=== PATIENT | female | born 1950 ===

== ENCOUNTER 2018-08-17 06:42 | Emergency (ER) | payer OTHER ==
[2015-02-05 13:09] VITALS: Wt 87.5 kg
[~2018-08-17 06:42] MED LIST: ALBU2.5V36 INH; ASPI-715 PO; ASPI-757 PO; AUG875 PO; BACDS PO; CEL100 PO; CEP500 PO; ENO40I SQ; FAM20 PO; IBU200 PO; IBU600 PO; IBUP-1618 PO; IRO150 PO; LOR5 PO; LOR5/325 PO; MULT-1 PO; MV-M1CAP15 PO; NAPR220C12 PO; OXYC-865 PO; OXYGEN INH; PER PO; PRED20TA6 PO; ROBC PO; VITAMINS; WARF-12 PO; [UNRECOGNIZED DRUG - CODE] PO
--- NOTE | 2018-08-17 07:37 | ER Report ---
History and Physical Time Seen By MD: 07:33 Hx. of Stated Complaint: pt reports headache and dizziness/lightheadedness this morning, feeling hot, shjort instance of chest pain, also intermittent rectal bleeding HPI/ROS 67-year-old female was working this morning in her snf job when she experienced 2 episodes of feeling lightheaded and dizzy. No syncope. One fleeting second of a sharp pain to her left chest. No SOB. [place] well before going to work. No syncope. No falls. 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 Active Scripts Prednisone (PREDNISONE) 20 Mg Tablet, 60 MG PO QDAY, #15 TAB 0 Refills Prov:DANIEL VAUGHN MD 01/05/17 Albuterol Sulfate 0.083% (ALBUTEROL SULFATE 0.083%) 2.5 Mg/3 Ml Vial.neb, 2.5 MG INH Q4H PRN for WHEEZING, #1 BOX 0 Refills Prov:DANIEL VAUGHN MD 01/05/17 Guaifenesin/Codeine (GUAIFENESIN-CODEINE SYRUP) 5 Ml Syrp, 5 ML PO Q6H PRN for COUGH, #120 ML 0 Refills Prov:DANIEL VAUGHN MD 01/05/17 Reported Medications Mv-Mn/FA/Vit K/Lycop/Lut/Coq10 (Daily Multivitamin Capsule) 1 Each Capsule, 1 TAB PO QAM 02/04/15 Oxygen (Oxygen) 2 L Inha, 2 L INH QHS, 0 Refills 10/18/11 Hx Smoking: Yes Smoking Status: Former Smoker Exposure to Second Hand Smoke?: No Hx Substance Use Disorder: No Hx Alcohol Use: No Constitutional Vital Sign - Last 24 Hours 08/17/18 08/17/18 08/17/18 08/17/18 06:54 06:57 07:02 07:07 Temp 99.0 Pulse 99 86 89 ??? Resp 18 B/P (MAP) 139/76 Pulse Ox 83 89 89 94 O2 Delivery Room Air 08/17/18 08/17/18 08/17/18 08/17/18 07:12 07:17 07:21 07:22 Pulse 85 86 85 B/P (MAP) 135/74 (94) Pulse Ox 89 89 91 08/17/18 08/17/18 08/17/18 08/17/18 07:27 07:32 07:37 07:42 Pulse 93 85 83 85 Resp 18 12 Pulse Ox 88 88 89 92 08/17/18 08/17/18 08/17/18 08/17/18 07:47 07:52 07:57 08:00 Pulse 83 83 87 Resp 10 19 16 B/P (MAP) 129/67 (87) Pulse Ox 92 89 89 08/17/18 08/17/18 08/17/18 08/17/18 08:02 08:07 08:12 08:17 Pulse 85 ? Resp 13 Pulse Ox 90 08/17/18 08/17/18 08/17/18 08/17/18 08:22 08:27 08:30 08:32 Pulse ??? 82 ??? B/P (MAP) 122/73 (89) Pulse Ox 92 92 08/17/18 08/17/18 08/17/18 08/17/18 08:37 08:42 08:57 09:00 Pulse 79 78 76 Resp 20 20 15 B/P (MAP) 119/69 (86) Pulse Ox 92 90 92 08/17/18 08/17/18 08/17/18 08/17/18 09:12 09:13 09:27 09:30 Pulse 74 73 Resp 9 17 B/P (MAP) 118/56 (76) Pulse Ox 90 90 O2 Flow Rate 2.0 08/17/18 08/17/18 08/17/18 08/17/18 09:42 09:57 10:00 10:12 Pulse 71 82 ??? Resp 11 21 16 B/P (MAP) 118/58 (78) Pulse Ox 91 91 91 Physical Exam General Appearance: The patient is alert, has no immediate need for airway protection and no current signs of toxicity. Eyes: Pupils equal and round no injection. Respiratory: Chest is non tender, lungs are clear to auscultation. Cardiac: regular rate and rhythm Gastrointestinal: Abdomen is soft and non tender, no masses, bowel sounds normal. Neck: Neck is supple and non tender. Extremities have full range of motion and are non tender. Skin: No rashes or lesions. DIFFERENTIAL DIAGNOSIS: After history and physical exam differential diagnosis was considered for infection, PE, WI, CVA Medical Decision Making Data Points Result Diagram: 08/17/18 0715 08/17/18 0715 Laboratory Hematology Test 08/17/18 07:15 08/17/18 10:20 Red Blood Count 5.35 M/uL (4.17-5.56) Mean Corpuscular Volume 90.0 fL (80.0-96.0) Mean Corpuscular Hemoglobin 30.5 pg (26.0-33.0) Mean Corpuscular Hemoglobin Concent 33.9 g/dL (32.0-36.0) Red Cell Distribution Width 13.8 % (11.5-14.5) Mean Platelet Volume 9.3 fL (7.2-11.1) Neutrophils (%) (Auto) 84.9 % (39.4-72.5) Lymphocytes (%) (Auto) 7.1 % (17.6-49.6) Monocytes (%) (Auto) 7.0 % (4.1-12.4) Eosinophils (%) (Auto) 0.3 % (0.4-6.7) Basophils (%) (Auto) 0.7 % (0.3-1.4) Nucleated RBC Relative Count (auto) 0.0 /100WBC Neutrophils # (Auto) 13.6 K/uL (2.0-7.4) Lymphocytes # (Auto) 1.1 K/uL (1.3-3.6) Monocytes # (Auto) 1.1 K/uL (0.3-1.0) Eosinophils # (Auto) 0.0 K/uL (0.0-0.5) Basophils # (Auto) 0.1 K/uL (0.0-0.1) Nucleated RBC Absolute Count (auto) 0.00 K/uL Peripheral Blood Smear No Y/N Sodium Level 143 mmol/L (137-145) Potassium Level 3.5 mmol/L (3.5-5.0) Chloride Level 105 mmol/L (98-107) Carbon Dioxide Level 29 mmol/L (22-31) Blood Urea Nitrogen 15 mg/dl (7-18) Creatinine 0.60 mg/dl (0.52-1.04) Glomerular Filtration Rate Calc > 60.0 Random Glucose 122 mg/dl (75-110) Calcium Level 9.1 mg/dl (8.4-10.2) Total Bilirubin 0.5 mg/dl (0.2-1.3) Aspartate Amino Transf (AST/SGOT) 29 U/L (0-35) Alanine Aminotransferase (ALT/SGPT) 27 U/L (0-56) Alkaline Phosphatase 74 U/L (0-126) Troponin I < 0.012 ng/ml Total Protein 7.2 g/dl (6.3-8.2) Albumin 3.9 g/dl (3.5-5.0) Urine Color Yellow Urine Clarity Clear Urine pH 6.0 pH (4.8-9.5) Urine Specific Mcguffey 1.014 Urine Protein Negative mg/dL (NEGATIVE) Urine Glucose (UA) Negative mg/dL (NEGATIVE) Urine Ketones Trace mg/dL (NEGATIVE) Urine Blood Negative (NEGATIVE) Urine Nitrite Negative (NEGATIVE) Urine Bilirubin Negative (NEGATIVE) Urine Urobilinogen Negative mg/dL (0.2-1.9) Urine Leukocyte Esterase Trace (NEGATIVE) Urine RBC <1 /HPF (0-2/HPF) Urine WBC 2 /HPF (0-5/HPF) Urine Squamous Epithelial Cells None /LPF (</=FEW) Urine Bacteria Negative /HPF (NONE-FEW) Urine Mucus Few /HPF (NONE-FEW) Chemistry Test 08/17/18 07:15 08/17/18 10:20 White Blood Count 16.1 k/uL (4.5-11.0) Red Blood Count 5.35 M/uL (4.17-5.56) Hemoglobin 16.3 g/dL (12.0-16.0) Hematocrit 48.1 % (34.0-47.0) Mean Corpuscular Volume 90.0 fL (80.0-96.0) Mean Corpuscular Hemoglobin 30.5 pg (26.0-33.0) Mean Corpuscular Hemoglobin Concent 33.9 g/dL (32.0-36.0) Red Cell Distribution Width 13.8 % (11.5-14.5) Platelet Count 220 K/uL (150-450) Mean Platelet Volume 9.3 fL (7.2-11.1) Neutrophils (%) (Auto) 84.9 % (39.4-72.5) Lymphocytes (%) (Auto) 7.1 % (17.6-49.6) Monocytes (%) (Auto) 7.0 % (4.1-12.4) Eosinophils (%) (Auto) 0.3 % (0.4-6.7) Basophils (%) (Auto) 0.7 % (0.3-1.4) Nucleated RBC Relative Count (auto) 0.0 /100WBC Neutrophils # (Auto) 13.6 K/uL (2.0-7.4) Lymphocytes # (Auto) 1.1 K/uL (1.3-3.6) Monocytes # (Auto) 1.1 K/uL (0.3-1.0) Eosinophils # (Auto) 0.0 K/uL (0.0-0.5) Basophils # (Auto) 0.1 K/uL (0.0-0.1) Nucleated RBC Absolute Count (auto) 0.00 K/uL Peripheral Blood Smear No Y/N Glomerular Filtration Rate Calc > 60.0 Calcium Level 9.1 mg/dl (8.4-10.2) Total Bilirubin 0.5 mg/dl (0.2-1.3) Aspartate Amino Transf (AST/SGOT) 29 U/L (0-35) Alanine Aminotransferase (ALT/SGPT) 27 U/L (0-56) Alkaline Phosphatase 74 U/L (0-126) Troponin I < 0.012 ng/ml Total Protein 7.2 g/dl (6.3-8.2) Albumin 3.9 g/dl (3.5-5.0) Urine Color Yellow Urine Clarity Clear Urine pH 6.0 pH (4.8-9.5) Urine Specific Mcguffey 1.014 Urine Protein Negative mg/dL (NEGATIVE) Urine Glucose (UA) Negative mg/dL (NEGATIVE) Urine Ketones Trace mg/dL (NEGATIVE) Urine Blood Negative (NEGATIVE) Urine Nitrite Negative (NEGATIVE) Urine Bilirubin Negative (NEGATIVE) Urine Urobilinogen Negative mg/dL (0.2-1.9) Urine Leukocyte Esterase Trace (NEGATIVE) Urine RBC <1 /HPF (0-2/HPF) Urine WBC 2 /HPF (0-5/HPF) Urine Squamous Epithelial Cells None /LPF (</=FEW) Urine Bacteria Negative /HPF (NONE-FEW) Urine Mucus Few /HPF (NONE-FEW) Urinalysis Test 08/17/18 10:20 Urine Color Yellow Urine Clarity Clear Urine pH 6.0 pH (4.8-9.5) Urine Specific Mcguffey 1.014 Urine Protein Negative mg/dL (NEGATIVE) Urine Glucose (UA) Negative mg/dL (NEGATIVE) Urine Ketones Trace mg/dL (NEGATIVE) Urine Blood Negative (NEGATIVE) Urine Nitrite Negative (NEGATIVE) Urine Bilirubin Negative (NEGATIVE) Urine Urobilinogen Negative mg/dL (0.2-1.9) Urine Leukocyte Esterase Trace (NEGATIVE) Urine RBC <1 /HPF (0-2/HPF) Urine WBC 2 /HPF (0-5/HPF) Urine Squamous Epithelial Cells None /LPF (</=FEW) Urine Bacteria Negative /HPF (NONE-FEW) Urine Mucus Few /HPF (NONE-FEW) ED Course/Re-evaluation ED Course Very pleasant 67-year-old female who had 2 episodes of feeling lightheaded and 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 No fever chills. No shortness of breath, no nausea vomiting or diarrhea. I am not sure of the source of her lightheadedness, but she spontaneous improved. Not c/w PE or ACS. Will take the remainder of the day off, and return to work tomorrow. Will follow up with her PCM Decision to Disposition Date: Aug 17, 2018 Decision to Disposition Time: 12:00 Depart Departure Latest Vital Signs Vital Signs Date Time Temp Pulse Resp B/P (MAP) Pulse Ox O2 Delivery O2 Flow Rate FiO2 08/17/18 10:12 ??? 16 91 08/17/18 10:00 118/58 (78) 08/17/18 09:13 2.0 08/17/18 06:54 99.0 Room Air Impression: Primary Impression: Dizziness Condition: Improved Disposition: HOME OR SELF-CARE Referrals: HALLEY KAUR DO (PCP) Patient Instructions: Dizziness (ED) ZEUS LOVE MD Aug 17, 2018 07:37
[2018-08-17] MEDS ORDERED: METOCLOPRAMIDE 10 MG/2 ML SDV IVP ONE (07:40)
[2018-08-17] MEDS ORDERED: NS(*) 0.9% 1000 ML BAG 1,000 ML IV ONE (07:40)
--- NOTE | 2018-08-17 07:42 | EKG ---
[facility] PATIENT NAME: CAROLINE ALFONSO : [id number] MR: [id number] V: [id number] EXAM DATE: ORDERING PHYSICIAN: ZEUS LOVE TECHNOLOGIST: Test Reason : Blood Pressure : / mmHG Vent. Rate : 082 BPM Atrial Rate : 082 BPM P-R Int : 140 ms QRS Dur : 088 ms QT Int : 340 ms P-R-T Axes : 051 000 048 degrees QTc Int : 397 ms Sinus rhythm U waves are present Borderline left axis Artifact in several leads - repeat if needed Abnormal ECG Confirmed by LEW BELL ([id number]) on 08/17/2018 3:12:07 PM Referred By: Confirmed By:LEW BELL
[2018-08-17 07:47] LABS: PLATELET COUNT, AUTOMATED 220 K/uL (150-450)
--- NOTE | 2018-08-17 08:42 | RADIOLOGY IMAGING REPORT ---
FAC[place] [facility] [place]IENT NAME: Nubia Loya : 1950 MR: [id number] V: [id number] EXAM DATE: ORDERING PHYSICIAN: ZEUS LOVE TECHNOLOGIST: Location: [facility] Patient: Nubia Loya : 1950 Visit/Account:[id number] Date of Sevice: 08/17/2018 CHEST PA AND LAT INDICATION: Chest pain, dizziness COMPARISON: January 05, 2017 FINDINGS: The cardiac silhouette is normal in size. Moderate sized hiatal hernia is unchanged. No p neumothorax. Minimal bilateral mid to lower lung central groundglass opacification is new. Convexity right thoracolumbar scoliosis and cholecystectomy clips as before. No acute osseous abnormality. No p leural fluid. IMPRESSION: Suggestion of minimal pulmonary edema. Report Dictated By: Basim Bach MD at 08/17/2018 8:37 AM Report E-Signed By: Basim Bach MD at 08/17/2018 8:38 AM WSN:[id number]
--- NOTE | 2018-08-17 09:07 | RADIOLOGY IMAGING REPORT ---
FACILITY: [facility] PATIENT NAME: Nubia Loya : 1950 MR: [id number] V: [id number] EXAM DATE: ORDERING PHYSICIAN: ZEUS LOVE TECHNOLOGIST: Location: [facility] [place] Patient: Nubia Loya : 1950 Visit/Account:[id number] Date of Sevice: 08/17/[address] scan without contrast COMPARISONS: Report from previous CT dated December 05, 2015 ADDITIONAL PERTINENT HISTORY: Fall several weeks ago with ongoing headaches TECHNIQUE: Multiple axial images were obtained from the skull base to the vertex without IV contrast . One of the following dose optimization techniques was utilized in the performance of this exam: Aut omated exposure control; adjustment of the mA and/or kV according to the patient's size; or use of an iterative reconstruction technique. Specific details can be referenced in the facility's radiology CT exam operational policy. FINDINGS: Midline shift: Negative Ventricles: Negative Brain parenchyma: Negative Extra-axial spaces: Negative Intracranial vasculature: Negative Osseous structures: Negative Paranasal sinuses and mastoid air cells: Negative Surrounding soft tissues and orbits: Negative IMPRESSION: Normal head CT scan without contrast. Report Dictated By: Alfonso Brunson MD at 08/17/2018 8:35 AM Report E-Signed By: Alfonso Brunson MD at 08/17/2018 9:03 AM WSN:[email or web address]
[2018-08-17 12:00] VITALS: BP 122/61
[2018-08-20] MEDS ORDERED: MECL25TA27 PO (15:28)
== END 2018-08-17 12:09 | disposition home or self-care (01) ==
LOC: ER 07:49
DX: R42 Dizziness and giddiness (principal); R94.31 Abnormal electrocardiogram [ECG] [EKG]
CPT/HCPCS: 70450; 71046; 81001; 84484; 85025; 93005; 96361; 96374; 99285; J2765; J7030; 82040; 82247; 82310; 82374; 82435; 82565; 82947; 84075; 84132; 84155; 84295; 84450; 84460; 84520

== ENCOUNTER → 2018-08-23 | Outpatient (CLI) | payer OTHER ==
[2015-02-05 13:09] VITALS: BMI 36.6
[~2018-08-23] MED LIST changes: +LEVO50TA86 PO; +MECL25TA27 PO
[2018-08-23 08:15] LABS: PLATELET COUNT, AUTOMATED 255 K/uL (150-450)
[2018-08-23 08:25] LABS: LDL CHOLESTEROL 71 mg/dl
== END ==
LOC: RESP 02:08
PROVIDERS: ATTEND Internal Medicine
DX: J44.9 Chronic obstructive pulmonary disease, unspecified (principal); R42 Dizziness and giddiness; R07.9 Chest pain, unspecified; R06.00 Dyspnea, unspecified; E66.9 Obesity, unspecified; J98.4 Other disorders of lung
CPT/HCPCS: 36415; 81001; 82040; 82247; 82310; 82374; 82435; 82465; 82565; 82947; 83036; 83718; 83880; 84075; 84132; 84155; 84295; 84443; 84450; 84460; 84478; 84520; 85025; 94060; 94726; 94729

== ENCOUNTER → 2018-08-30 | Outpatient (CLI) | payer OTHER ==
[2015-02-05 13:09] VITALS: BMI 36.6
[~2018-08-30] MED LIST changes: +GADOBENATE 529MG/1ML 15ML VIAL IVP ONE
--- NOTE | 2018-08-30 14:00 | RADIOLOGY IMAGING REPORT ---
FACILITY: [facility] - [place] PATIENT NAME: Nubia Loya : 1950 MR: [id number] V: [id number] EXAM DATE: ORDERING PHYSICIAN: ART CASTILLO TECHNOLOGIST: Location: [facility] [place] Patient: Nubia Loya : 1950 Visit/Account:[id number] Date of Sevice: 08/30/2018 EXAMINATION: MRI brain without IV contrast MRI brain with IV contrast HISTORY: Dizziness, headache. COMPARISON: Brain MRI from 09/09/[address] head from 08/17/2018. TECHNIQUE: Multi-planar, multi-sequence brain MRI was performed before and after IV gadolinium. CONTRAST: 15 mL of IV MultiHance gadolinium. FINDINGS: Brain volume: Normal. Sagittal midline structures: Normal. Ventricles: Normal. Acute ischemic changes: No diffusion restriction present to suggest acute ischemia. Hemorrhage: No acute hemorrhage or hemosiderin staining. Masses/edema: None. Enhancement: No abnormal intracranial enhancement. Cook-white: Negative. White matter: Patchy T2/FLAIR hyperintensities in the deep white matter bilaterally are slightly wor se. Vessels: Normal. Extra-axial: None. Calvarium/scalp: Negative. Skull base: Negative. Visualized sinuses/orbits: Mild mucosal thickening in the bilateral ethmoid air cells. Mild nasal s eptal deviation to the right. Visualized upper neck: Negative. IMPRESSION: 1. No acute infarct, hemorrhage or intracranial mass lesion. 2. Moderate nonspecific white matter disease is slightly worse. This could be due to chronic small vessel ischemia, and/or sequela of chronic migraine headaches, previous inflammation or trauma. Report Dictated By: Jessica Franklin MD at 08/30/2018 1:52 PM Report E-Signed By: Jessica Franklin MD at 08/30/2018 1:56 PM WSN:[id number]
== END ==
LOC: MRI 11:23
PROVIDERS: ATTEND Internal Medicine
DX: J34.2 Deviated nasal septum (principal); R90.82 White matter disease, unspecified; J32.2 Chronic ethmoidal sinusitis
CPT/HCPCS: 70553; A9577

== ENCOUNTER → 2018-10-09 | Outpatient (CLI) | payer OTHER ==
[2015-02-05 13:09] VITALS: BMI 36.6
[~2018-10-09] MED LIST changes: -GADOBENATE 529MG/1ML 15ML VIAL IVP ONE; +MAGN250T5 PO
[2018-10-09 10:56] LABS: PLATELET COUNT, AUTOMATED 226 K/uL (150-450)
== END ==
LOC: LAB 10:00
PROVIDERS: ATTEND Internal Medicine
DX: E03.9 Hypothyroidism, unspecified (principal); R42 Dizziness and giddiness
CPT/HCPCS: 36415; 82040; 82247; 82310; 82374; 82435; 82565; 82947; 84075; 84132; 84155; 84295; 84439; 84443; 84450; 84460; 84520; 85025

== ENCOUNTER → 2018-10-16 | Outpatient (CLI) | payer OTHER ==
[2015-02-05 13:09] VITALS: BMI 36.6
== END ==
LOC: AUD 10-12 10:14
PROVIDERS: ATTEND Internal Medicine
DX: R42 Dizziness and giddiness (principal)
CPT/HCPCS: 92557; 92570

== ENCOUNTER → 2018-10-20 | Outpatient (CLI) | payer OTHER ==
[2015-02-05 13:09] VITALS: BMI 36.6
== END ==
LOC: RESP 19:51
PROVIDERS: ATTEND Internal Medicine
DX: G47.33 Obstructive sleep apnea (adult) (pediatric) (principal); G47.36 Sleep related hypoventilation in conditions classified elsewhere; G47.61 Periodic limb movement disorder

== ENCOUNTER → 2018-11-16 | Outpatient (CLI) | payer OTHER ==
[2015-02-05 13:09] VITALS: BMI 36.6
[~2018-11-16] MED LIST changes: +HYDR10FO7 RC; +MELO-207 PO; +SULF-198 PO
--- NOTE | 2018-11-16 10:17 | RADIOLOGY IMAGING REPORT ---
FAC[place] [facility] [place]IENT NAME: Nubia Loya : 1950 MR: [id number] V: [id number] EXAM DATE: ORDERING PHYSICIAN: ART CASTILLO TECHNOLOGIST: Location: [facility] Patient: Nubia Loya : 1950 Visit/Account:[id number] Date of Sevice: 11/16/2018 Exam type: SHOULDER MIN 2 VIEWS RIGHT History: Right shoulder pain Comparison: None. Findings: There is no evidence of acute fracture dislocation involving the right shoulder. No evidence of lyti c or blastic bone lesions There is very mild narrowing the right glenohumeral joint and mild degenera tive changes of the right AC joint IMPRESSION: 1. Mild generative changes of the right shoulder and right AC joint Report Dictated By: Jordyn Antoine MD at 11/16/2018 10:11 AM Report E-Signed By: Jordyn Antoine MD at 11/16/2018 10:12 AM WSN:[id number]
== END ==
LOC: LAB 08:40
PROVIDERS: ATTEND Internal Medicine
DX: M25.511 Pain in right shoulder (principal)

== ENCOUNTER 2018-11-18 18:41 | Emergency (ER) | payer OTHER ==
[2015-02-05 13:09] VITALS: Wt 87.5 kg
[~2018-11-18 18:41] MED LIST changes: -HYDR10FO7 RC; -SULF-198 PO
--- NOTE | 2018-11-18 18:51 | ER Report ---
History and Physical Time Seen By MD: 18:51 Hx. of Stated Complaint: PT REPORTS RIGHT SIDED ARM PAIN. PT ALSO REPORTS MEDIUM RED BLOOD IN STOOL. HPI/ROS CHIEF COMPLAINT: Right shoulder and neck pain HISTORY OF PRESENT ILLNESS: This is a 68-year-old female who presents to the emergency department for right shoulder and neck pain. Patient states that she saw her primary care provider here recently and was diagnosed with severe arthritis in the right shoulder, patient states that today she feels the right shoulder up into the right neck and into the scalp are painful and warm. She also states that she had some blood on the toilet paper, she has mild abdominal discomfort. Her son who is at the bedside also noted that about 30 minutes prior to arrival she had a very pale appearance, the right side of her face was d rooping, she seemed somewhat confused, he stated bring her in however while in transport the patient had complete resolution of her facial drooping and paleness. Patient is alert and oriented, GCS 15, interacting well answering my questions appropriately. No obvious deficits. Denies chest pain or shortness of breath at this time. No dysuria. No rashes. No recent illnesses. REVIEW OF SYSTEMS: Constitutional: No fever, no chills. Eyes: No discharge. ENT: No sore throat. Cardiovascular: No chest pain, no palpitations. Respiratory: No cough, no shortness of breath. Gastrointestinal: As above. Genitourinary: No hematuria. Musculoskeletal: As above. Skin: No rashes. Neurological: As above. Allergies: Coded Allergies: morphine (Unverified Adverse Reaction, Intermediate, nausea, vomiting, sweating, 11/18/18) per pt after morphine envelope maker Home Meds Active Scripts Sulfamethoxazole/Trimet 800-160 Mg Tab (BACTRIM DS TABLET) 1 Each Tablet, 1 TAB PO Q12H for 3 Days, #5 TAB 0 Refills Prov:MILLICENT HILL REFINERY PIPELINE OPERATOR-BC 11/18/18 Meloxicam (MELOXICAM) 15 Mg Tablet, 15 MG PO QDAY PRN for pain, #30 TAB 1 Refill Prov:ART CORREIA MD 11/16/18 Magnesium Oxide (MAGNESIUM OXIDE) 250 Mg Tablet, 250 MG PO QHS PRN for cramps, #30 TAB Prov:ART CORREIA MD 10/08/18 Levothyroxine Sodium (LEVOTHYROXINE SODIUM) 50 Mcg Tablet, 50 MCG PO QDAY, #30 TAB 3 Refills Prov:ART CORREIA MD 08/23/18 Meclizine Hcl (MECLIZINE HCL) 25 Mg Tab.chew, 25 MG PO TID PRN for dizziness, #30 TAB.CHEW Prov:ART CORREIA MD 08/20/18 Reported Medications Oxygen (Oxygen) 2 L Inha, 2 L INH QHS, 0 Refills 10/18/11 Past Medical/Surgical History The patient has a past medical and surgical history of CVA, migraines, hypertension, uses oxygen at night, 4 year plus smoking, COPD, rectal bleeding, gallbladder disease, kidney stones, arthritis, spinal toe fracture, wears glasses, right total knee, partial hysterectomy, cystoscopy with stent placement, bony growth and throat removed in 2011. Appendectomy, cholecystectomy. Reviewed Nurses Notes: Yes Hx Smoking: Yes Smoking Status: Former Smoker Exposure to Second Hand Smoke?: No Hx Substance Use Disorder: No Hx Alcohol Use: No Constitutional Vital Sign - Last 24 Hours 11/18/18 11/18/18 11/18/18 11/18/18 18:47 18:48 18:56 19:00 Temp 98.2 Pulse 66 63 Resp 14 18 B/P (MAP) 152/87 (108) 152/87 159/71 (100) Pulse Ox 92 90 O2 Delivery Nasal Cannula 11/18/18 11/18/18 11/18/18 11/18/18 19:11 19:30 19:41 19:48 Pulse 60 59 Resp 15 16 B/P (MAP) 118/76 (90) Pulse Ox 90 93 O2 Flow Rate 2.0 Physical Exam General Appearance: The patient is alert, has no immediate need for airway protection and no signs of toxicity. Eyes: Pupils equal and round no pallor or injection. EOMs intact. No nystagmus. ENT, Mouth: Mucous membranes are moist. Respiratory: There are no retractions, lungs are clear to auscultation. Cardiovascular: Regular rate and rhythm, very faint and distant systolic murmur, no clicks or rubs. Gastrointestinal: Abdomen is soft and non tender, no masses, bowel sounds normal. Neurological: Alert and oriented 4. Moving all extremities. Following all commands. No focal neuro deficits. Ambulates with steady gait. Rapid and sequential movements of the upper extremities intact. No facial numbness or droop identified. Uvula midline, no deviation of the tongue. No pronator drift. Finger to nose intact bilaterally. Lower extremity sensation intact bilaterally. Able to hold each lower extremity off the gurney for 5 seconds independently. Dorsal plantar flexion-extension intact bilaterally. Skin: Warm and dry, no rashes. Musculoskeletal: Neck is supple non tender. Extremities are nontender, nonswollen and have full range of motion. DIFFERENTIAL DIAGNOSIS: After history and physical exam differential diagnosis was considered for CVA, TIA, Olivo's palsy, exacerbation of arthritis, shingles, urinary tract infection, gastroenteritis, upper or lower GI bleed. Medical Decision Making Data Points Result Diagram: 11/18/18184911/18/181849 Laboratory Hematology Test 11/18/18 18:50 11/18/18 20:02 Red Blood Count 5.26 M/uL (4.17-5.56) Mean Corpuscular Volume 88.6 fL (80.0-96.0) Mean Corpuscular Hemoglobin 30.5 pg (26.0-33.0) Mean Corpuscular Hemoglobin Concent 34.4 g/dL (32.0-36.0) Red Cell Distribution Width 14.2 % (11.5-14.5) Mean Platelet Volume 8.9 fL (7.2-11.1) Neutrophils (%) (Auto) 53.2 % (39.4-72.5) Lymphocytes (%) (Auto) 33.5 % (17.6-49.6) Monocytes (%) (Auto) 9.5 % (4.1-12.4) Eosinophils (%) (Auto) 2.5 % (0.4-6.7) Basophils (%) (Auto) 1.3 % (0.3-1.4) Nucleated RBC Relative Count (auto) 0.1 /100WBC Neutrophils # (Auto) 5.4 K/uL (2.0-7.4) Lymphocytes # (Auto) 3.4 K/uL (1.3-3.6) Monocytes # (Auto) 1.0 K/uL (0.3-1.0) Eosinophils # (Auto) 0.3 K/uL (0.0-0.5) Basophils # (Auto) 0.1 K/uL (0.0-0.1) Nucleated RBC Absolute Count (auto) 0.01 K/uL Prothrombin Time 12.9 seconds (12.0-14.4) Prothromb Time International Ratio 0.98 Activated Partial Thromboplast Time 27 seconds (23-35) Sodium Level 142 mmol/L (137-145) Potassium Level 3.9 mmol/L (3.5-5.0) Chloride Level 106 mmol/L (98-107) Carbon Dioxide Level 27 mmol/L (22-31) Blood Urea Nitrogen 15 mg/dl (7-18) Creatinine 0.70 mg/dl (0.52-1.04) Glomerular Filtration Rate Calc > 60.0 Random Glucose 100 mg/dl (75-110) Calcium Level 9.5 mg/dl (8.4-10.2) Total Bilirubin 0.6 mg/dl (0.2-1.3) Aspartate Amino Transf (AST/SGOT) 24 U/L (0-35) Alanine Aminotransferase (ALT/SGPT) 16 U/L (0-56) Alkaline Phosphatase 81 U/L (0-126) Troponin I < 0.012 ng/ml Total Protein 7.9 g/dl (6.3-8.2) Albumin 4.2 g/dl (3.5-5.0) Urine Color Yellow Urine Clarity Cloudy Urine pH 5.0 pH (4.8-9.5) Urine Specific [place] 1.024 Urine Protein 30 mg/dL (NEGATIVE) Urine Glucose (UA) Negative mg/dL (NEGATIVE) Urine Ketones Trace mg/dL (NEGATIVE) Urine Blood Moderate (NEGATIVE) Urine Nitrite Negative (NEGATIVE) Urine Bilirubin Negative (NEGATIVE) Urine Urobilinogen 2.0 mg/dL (0.2-1.9) Urine Leukocyte Esterase Large (NEGATIVE) Urine RBC 29 /HPF (0-2/HPF) Urine WBC 345 /HPF (0-5/HPF) Urine Squamous Epithelial Cells Many /LPF (</=FEW) Urine Bacteria Few /HPF (NONE-FEW) Urine Hyaline Casts Few /LPF (NONE-FEW) Urine Mucus Few /HPF (NONE-FEW) Chemistry Test 11/18/18 18:50 11/18/18 20:02 White Blood Count 10.1 k/uL (4.5-11.0) Red Blood Count 5.26 M/uL (4.17-5.56) Hemoglobin 16.0 g/dL (12.0-16.0) Hematocrit 46.6 % (34.0-47.0) Mean Corpuscular Volume 88.6 fL (80.0-96.0) Mean Corpuscular Hemoglobin 30.5 pg (26.0-33.0) Mean Corpuscular Hemoglobin Concent 34.4 g/dL (32.0-36.0) Red Cell Distribution Width 14.2 % (11.5-14.5) Platelet Count 266 K/uL (150-450) Mean Platelet Volume 8.9 fL (7.2-11.1) Neutrophils (%) (Auto) 53.2 % (39.4-72.5) Lymphocytes (%) (Auto) 33.5 % (17.6-49.6) Monocytes (%) (Auto) 9.5 % (4.1-12.4) Eosinophils (%) (Auto) 2.5 % (0.4-6.7) Basophils (%) (Auto) 1.3 % (0.3-1.4) Nucleated RBC Relative Count (auto) 0.1 /100WBC Neutrophils # (Auto) 5.4 K/uL (2.0-7.4) Lymphocytes # (Auto) 3.4 K/uL (1.3-3.6) Monocytes # (Auto) 1.0 K/uL (0.3-1.0) Eosinophils # (Auto) 0.3 K/uL (0.0-0.5) Basophils # (Auto) 0.1 K/uL (0.0-0.1) Nucleated RBC Absolute Count (auto) 0.01 K/uL Prothrombin Time 12.9 seconds (12.0-14.4) Prothromb Time International Ratio 0.98 Activated Partial Thromboplast Time 27 seconds (23-35) Glomerular Filtration Rate Calc > 60.0 Calcium Level 9.5 mg/dl (8.4-10.2) Total Bilirubin 0.6 mg/dl (0.2-1.3) Aspartate Amino Transf (AST/SGOT) 24 U/L (0-35) Alanine Aminotransferase (ALT/SGPT) 16 U/L (0-56) Alkaline Phosphatase 81 U/L (0-126) Troponin I < 0.012 ng/ml Total Protein 7.9 g/dl (6.3-8.2) Albumin 4.2 g/dl (3.5-5.0) Urine Color Yellow Urine Clarity Cloudy Urine pH 5.0 pH (4.8-9.5) Urine Specific [place] 1.024 Urine Protein 30 mg/dL (NEGATIVE) Urine Glucose (UA) Negative mg/dL (NEGATIVE) Urine Ketones Trace mg/dL (NEGATIVE) Urine Blood Moderate (NEGATIVE) Urine Nitrite Negative (NEGATIVE) Urine Bilirubin Negative (NEGATIVE) Urine Urobilinogen 2.0 mg/dL (0.2-1.9) Urine Leukocyte Esterase Large (NEGATIVE) Urine RBC 29 /HPF (0-2/HPF) Urine WBC 345 /HPF (0-5/HPF) Urine Squamous Epithelial Cells Many /LPF (</=FEW) Urine Bacteria Few /HPF (NONE-FEW) Urine Hyaline Casts Few /LPF (NONE-FEW) Urine Mucus Few /HPF (NONE-FEW) Coagulation Test 11/18/18 18:50 Prothrombin Time 12.9 seconds Prothromb Time International Ratio 0.98 Activated Partial Thromboplast Time 27 seconds Urinalysis Test 11/18/18 20:02 Urine Color Yellow Urine Clarity Cloudy Urine pH 5.0 pH (4.8-9.5) Urine Specific [place] 1.024 Urine Protein 30 mg/dL (NEGATIVE) Urine Glucose (UA) Negative mg/dL (NEGATIVE) Urine Ketones Trace mg/dL (NEGATIVE) Urine Blood Moderate (NEGATIVE) Urine Nitrite Negative (NEGATIVE) Urine Bilirubin Negative (NEGATIVE) Urine Urobilinogen 2.0 mg/dL (0.2-1.9) Urine Leukocyte Esterase Large (NEGATIVE) Urine RBC 29 /HPF (0-2/HPF) Urine WBC 345 /HPF (0-5/HPF) Urine Squamous Epithelial Cells Many /LPF (</=FEW) Urine Bacteria Few /HPF (NONE-FEW) Urine Hyaline Casts Few /LPF (NONE-FEW) Urine Mucus Few /HPF (NONE-FEW) EKG/Imaging EKG Interpretation 12 lead EKG: Time of EKG 1859. Rhythm: Sinus rhythm, ventricular rate 61 bpm. [place]: normal QRS: normal ST segments: No ST depression or elevation identified. No significant changes from the 08/17/2018 EKG, no U waves on current EKG. Imaging Location: [facility] Patient: Nubia Loya : 1950 Visit/Account:[id number] Date of Sevice: 11/18/2018 EXAMINATION: Chest radiographs 2 views HISTORY: Right shoulder pain radiating into the neck. COMPARISON: 08/17/2018. FINDINGS: PA and lateral views of the chest are submitted. Lines/tubes: None. Lungs/pleura: Lung aeration has improved from prior exam without focal consolidation or pleural effusion. Heart: Negative. Mediastinum: Small hiatal hernia is unchanged. Bony structures/body wall: Negative. Visualized upper abdomen: Cholecystectomy clips in the right upper quadrant. IMPRESSION: No radiographic evidence of acute cardiopulmonary disease. Report Dictated By: Jessica Franklin MD at 11/18/2018 7:42 PM Report E-Signed By: Jessica Franklin MD at 11/18/2018 7:43 PM WSN:[id number] Location: [facility] Patient: Nubia Loya : 1950 Visit/Account:[id number] Date of Sevice: 11/18/2018 EXAMINATION: CT head without IV contrast HISTORY: Headache. COMPARISON: CT head from 08/17/2018 and brain MRI from 08/30/2018. TECHNIQUE: Contiguous axial images were obtained from the skull base to the vertex without intravenous contrast. Sagittal and coronal reformatted images are also submitted. One of the following dose optimization techniques was utilized in the performance of this exam: Automated exposure control; adjustment of the mA and/or kV according to the patient's size; or use of an iterative reconstruction technique. Specific details can be referenced in the facility's radiology CT exam operational policy. FINDINGS: Brain volume: Normal. Ventricles: Normal. Acute ischemic changes: None. Hemorrhage: No acute intracranial hemorrhage. Masses/edema: None. Cook-white: Negative. White matter: A few hypodensities in the deep white matter bilaterally. Vessels: Negative. Extra-axial: Negative. Calvarium/scalp: Negative. Skull base/visualized face: Negative. Visualized sinuses/orbits: Mild mucosal thickening in the paranasal sinuses. Mild nasal septal deviation to the right. IMPRESSION: 1. No acute hemorrhage or intracranial mass lesion. No CT evidence of acute infarct. 2. Mild nonspecific white matter disease is suspicious for chronic small vessel ischemia, and is unchanged. Report Dictated By: Jessica Franklin MD at 11/18/2018 7:44 PM Report E-Signed By: Jessica Franklin MD at 11/18/2018 7:54 PM WSN:[id number] ED Course/Re-evaluation Clinical Indication for ER IV: Hydration, IV Access ED Course The patient was admitted to room. A history of square obtained. Differential diagnoses were considered. An IV was started. A CBC, CMP, troponin and UA were collected. A 500 mL normal saline bolus was given. EKG showing sinus rhythm, ventricular rate [address] of the head was negative for any acute intracranial abnormalities. Negative two-view chest x-ray.Lab studies unremarkable, negative troponin, UA showing urinary tract infection. I reviewed the laboratory studies and imaging results with the patient. After further discussion with the patient she did not actually see blood on the toilet paper from stool sounds likely that was after urination, and a very scant amount. My suspicion for TIA is low, the patient has had severe arthritis in the right shoulder I suspect that her symptoms are related to the severe arthritis. I did however start her on an 81 mg aspirin, I did have her follow-up with her primary care provider within the next 1-2 days. They will discuss TIA workup at that time. I also expressed a low threshold for returning to the emergency department, for any other concerns or worsening symptoms. The patient and her son both expressed understanding and were in agreement with this plan of care and discharged home. I did start her on Bactrim for her urinary tract infection. She was also given a prescription for the remainder of the antibiotics. Decision to Disposition Date: Nov 18, 2018 Decision to Disposition Time: 20:32 Depart Departure Latest Vital Signs Vital Signs Date Time Temp Pulse Resp B/P (MAP) Pulse Ox O2 Delivery O2 Flow Rate FiO2 11/18/18 19:48 2.0 11/18/18 19:41 59 16 93 11/18/18 19:30 118/76 (90) 11/18/18 18:48 98.2 Nasal Cannula Impression: Primary Impression: UTI (urinary tract infection) Condition: Improved Disposition: HOME OR SELF-CARE Referrals: ART CORREIA MD (PCP) 5 Days New Scripts Sulfamethoxazole/Trimet 800-160 Mg Tab (BACTRIM DS TABLET) 1 Each Tablet 1 TAB PO Q12H for 3 Days, #5 TAB 0 Refills Prov: MILLICENT HILL 11/18/18 Patient Instructions: Urinary Traction Infection in Older Adults (ED) Additional Instructions: No concerning findings on the CT or lab studies today. Your urine does indicate you have a urinary tract infection, with blood. Please follow up with Dr. Correia within the next 1-4 days for follow up. Drink plenty of water. Get plenty of rest. Return to the ED for any other concerns or worsening symptoms. the shoulder pain you are experiencing is likely arthritis. You should discuss a possible TIA work up with Dr. Correia, carotid studies and bubble echocardiogram. Daily 81mg baby aspirin until following up with Dr. Correia. Problem Qualifiers Primary Impression: UTI (urinary tract infection) Urinary tract infection type: acute cystitis Hematuria presence: with hematuria Qualified Codes: N30.01 - Acute cystitis with hematuria MILLICENT HILL-SHAD Nov 18, 2018 18:51
[2018-11-18] MEDS ORDERED: NS(*) 0.9% 500 ML BAG 500 ML IV ONE (18:57)
[2018-11-18] MEDS ORDERED: PANTOPRAZOLE SOD 40 MG IV VIAL IVP ONE (19:00)
[2018-11-18 19:09] LABS: PLATELET COUNT, AUTOMATED 266 K/uL (150-450)
[2018-11-18 19:17] LABS: INR 0.98
--- NOTE | 2018-11-18 19:49 | RADIOLOGY IMAGING REPORT ---
FACILITY: [facility] PATIENT NAME: Nubia Loya : 1950 MR: [id number] V: [id number] EXAM DATE: ORDERING PHYSICIAN: MILLICENT HILL TECHNOLOGIST: Location: [facility] Patient: Nubia Loya : 1950 Visit/Account:[id number] Date of Sevice: 11/18/2018 EXAMINATION: Chest radiographs 2 views HISTORY: Right shoulder pain radiating into the neck. COMPARISON: 08/17/2018. FINDINGS: PA and lateral views of the chest are submitted. Lines/tubes: None. Lungs/pleura: Lung aeration has improved from prior exam without focal consolidation or pleural effu antoine. Heart: Negative. Mediastinum: Small hiatal hernia is unchanged. Bony structures/body wall: Negative. Visualized upper abdomen: Cholecystectomy clips in the right upper quadrant. IMPRESSION: No radiographic evidence of acute cardiopulmonary disease. Report Dictated By: Jessica Franklin MD at 11/18/2018 7:42 PM Report E-Signed By: Jessica Franklin MD at 11/18/2018 7:43 PM WSN:[id number]
--- NOTE | 2018-11-18 19:57 | RADIOLOGY IMAGING REPORT ---
FACILITY: [facility] PATIENT NAME: Nubia Loya : 1950 MR: [id number] V: [id number] EXAM DATE: ORDERING PHYSICIAN: MILLICENT HILL TECHNOLOGIST: Location: [facility] [place] Patient: Nubia Loya : 1950 Visit/Account:[id number] Date of Sevice: 11/18/2018 EXAMINATION: CT head without IV contrast HISTORY: Headache. COMPARISON: CT head from 08/17/2018 and brain MRI from 08/30/2018. TECHNIQUE: Contiguous axial images were obtained from the skull base to the vertex without intraven ous contrast. Sagittal and coronal reformatted images are also submitted. One of the following dose optimization techniques was utilized in the performance of this exam: Autom ated exposure control; adjustment of the mA and/or kV according to the patient's size; or use of an i terative reconstruction technique. Specific details can be referenced in the facility's radiology C T exam operational policy. FINDINGS: Brain volume: Normal. Ventricles: Normal. Acute ischemic changes: None. Hemorrhage: No acute intracranial hemorrhage. Masses/edema: None. Cook-white: Negative. White matter: A few hypodensities in the deep white matter bilaterally. Vessels: Negative. Extra-axial: Negative. Calvarium/scalp: Negative. Skull base/visualized face: Negative. Visualized sinuses/orbits: Mild mucosal thickening in the paranasal sinuses. Mild nasal septal devia tion to the right. IMPRESSION: 1. No acute hemorrhage or intracranial mass lesion. No CT evidence of acute infarct. 2. Mild nonspecific white matter disease is suspicious for chronic small vessel ischemia, and is unch anged. Report Dictated By: Jessica Franklin MD at 11/18/2018 7:44 PM Report E-Signed By: Jessica Franklin MD at 11/18/2018 7:54 PM WSN:[id number]
[2018-11-18 20:30] VITALS: BP 140/74
--- NOTE | 2018-11-18 20:33 | EKG ---
FACILITY: PATIENT NAME: CAROLINE ALFONSO : [id number] MR: [id number] V: [id number] EXAM DATE: ORDERING PHYSICIAN: MILLICENT HILL TECHNOLOGIST: AMADEO Test Reason : R/O STROKE Blood Pressure : / mmHG Vent. Rate : 061 BPM Atrial Rate : 061 BPM P-R Int : 094 ms QRS Dur : 082 ms QT Int : 426 ms P-R-T Axes : 035 007 041 degrees QTc Int : 428 ms Sinus rhythm with short NE Possible Inferior infarct (cited on or before 18-NOV-2018) Cannot rule out Anterior infarct , age undetermined Abnormal ECG When compared with ECG of 17-AUG-2018 07:28, U wave no longer present Confirmed by Vishnu Stafford ([id number]) on 11/18/2018 11:14:09 PM Referred By: Confirmed By:Vishnu Johnson
[2018-11-18] MEDS ORDERED: TRIMETH/SULFA DS 160-800MG TAB PO ONE (20:35)
[2018-11-18] MEDS ORDERED: SULF-198 PO (20:37)
[2018-11-18] MEDS ORDERED: ASPIRIN 81 MG CHEW PO ONE (20:45)
[2018-11-19] MEDS ORDERED: HYDR10FO7 RC (14:14)
== END 2018-11-18 21:00 | disposition home or self-care (01) ==
LOC: ER 19:00
DX: N30.01 Acute cystitis with hematuria (principal); M19.011 Primary osteoarthritis, right shoulder
CPT/HCPCS: 70450; 71046; 81001; 84484; 85025; 85610; 85730; 93005; 96374; 99284; C9113; J7040; 82040; 82247; 82310; 82374; 82435; 82565; 82947; 84075; 84132; 84155; 84295; 84450; 84460; 84520

== ENCOUNTER → 2018-11-21 | Outpatient (CLI) | payer OTHER ==
[2015-02-05 13:09] VITALS: BMI 36.6
[~2018-11-21] MED LIST changes: +HYDR10FO7 RC; +SULF-198 PO
== END ==
LOC: RESP 20:56
PROVIDERS: ATTEND Internal Medicine
DX: Z02.9 Encounter for administrative examinations, unspecified (principal)

== ENCOUNTER 2018-11-30 09:00 | Outpatient (RCR) | payer OTHER ==
[2015-02-05 13:09] VITALS: BMI 36.6
--- NOTE | 2018-09-06 07:41 | PT INITIAL EVALUATION ---
MEDICAL DIAGNOSIS: R42 Dizziness TREATMENT DIAGNOSIS: H81.11 R posterior canal BPPV, F07.81 Post-Concussion Syndrome DATE OF ONSET: 08/28/18 SUBJECTIVE: Nubia Loya presents to PT for spinning vertigo that she awoke with on 08/28/18. She's off work, FMLA, due to her dizziness. She had BPPV two years ago and it resolved spontaneously. She also struck the L side of her head 12/05/15 when she fainted, possibly from her heart. 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 She started using a SPC three weeks ago. Dizziness is described as out-of-sync sensation and also spinning. Dizziness is worse with head back, picking up items from the floor, laying on the left side and better with being stationary. 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 OBJECTIVE: Posture: Heels 8" apart, unsteady, head midline, no resting nystagmus. ROM: AROM cervical spine 75% rotation B, extension 50% with dizziness, no nystagmus Palpation: Tight, painful L suboccipital and lateral neck. Special Tests: Positive R Hallpike for torsional upbeating nystagmus that extinguishes in 20 seconds. Positive VOR x1, head thrust for out-of-sync sensation, no nystagmus. Negative cerebellar tests. Mobility: Sit<>stand with UE use in 1-2 attempts, unsteady with immediate standing balance. Gait: SPC, discordant steps, weaves L and R. Balance: Pruitt Balance Assessment 35/56, a high fall risk. 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 Functional reach 5". No single leg stand, tandem stand, hip or ankle strategy. ASSESSMENT: Nubia Loya presents with both R posterior canal BPPV and post- concussion syndrome, altered cervical proprioception from striking her head. She did well with canalith repositioning x2 to alleviate her BPPV and had more even stride with SPC after the session. Short Term Goals One month: Nubia ambulates 50 feet independently, transfers, turns in bed without dizziness. Two months: Nubia turns, lifts items from the floor without dizziness, RTW regular duties. Three months: Nubia demonstrates corrective balance reactions, community ambulator over uneven ground, normal fall risk (Pruitt). Patient's Goals Return to work regular duties with normal balance reactions and independent gait. PLAN: Patient to be seen for Manual Therapy Strengthening/condition Ice/Heat Range of Motion Stretching Neuromuscular Re-ed Electrical Stim Gait Trg/Balance Trg Home Exercise Program 2x/Week for 3 months Thank you for this referral. If you have any questions, comments, or concerns about this report or plan, please contact me at . [facility]
--- NOTE | 2018-10-05 17:47 | PT PLAN OF CARE ---
Physician: Dr. Wyatt Correia Patient is being seen: 2x/week Therapist: Karly Nguyen PT Medical Diagnosis: R42 Dizziness Treatment Diagnosis: H81.11 R posterior canal BPPV, F07.81 Post-Concussion Syndrome Date of Onset: 08/28/18 Date of Initial Evaluation: 09/05/18 Date patient was last seen: 10/05/18 Number of treatments: 7 Number of cancellations/No shows: 0 INTERVENTIONS: Manual Therapy, Strengthening/condition, Range of Motion/Stretching, Neuromuscular Re-ed, Gait Trg/Balance Trg, Home Exercise Program GOALS: One month: Nubia ambulates 50 feet independently (met), transfers, turns in bed without dizziness (both met). Two months: Nubia turns (progressing), lifts items from the floor without dizziness (partially met), RTW regular duties (not met). Three months: Nubia demonstrates corrective balance reactions (not met), community ambulator over uneven ground (not met), normal fall risk (Pruitt) 9progressing). PATIENT'S GOAL: Return to work regular duties with normal balance reactions and independent gait (not met). Patient Compliance: Excellent Prognosis: Excellent Reasons for continuing therapy: S: Nubia denies spinning vertigo with picking up items from the floor sometimes, always now with turning in bed. She has faintness and dizziness with sitting looking up, to the R for 1 minute. She's had some orthostatic hypotension when she was severe with no salt intake, better with moderate salt intake. She still has head ache and dizziness with walking, conditioning exercise. Posture: Heels now 4" apart, steady, head midline, no resting nystagmus. ROM: AROM cervical spine 75% rotation B, extension 50% without dizziness, no nystagmus Palpation: Tight, painful L suboccipital and lateral neck. Special Tests: Negative R Hallpike for torsional upbeating nystagmus on 09/21/18. Positive VOR x1, head thrust for out-of-sync sensation, no nystagmus at 2 Hz (vestibular nerve stimulation). Seated vertebral artery occlusion test to the R creates pallor, out-of-sync feeling. Mobility: Sit<>stand without UE use in 1 attempts, steady with immediate standing balance. Gait: Nubia now ambulates with SPC with even step length, B Trendelenberg at a slow cadance. Balance loss with gait with head up/down, walking forward eyes shut, backward eyes open, no tandem gait. She turns safely >4 seconds. Functional Gait Assessment 40% impairment. Gait with distraction causes stiff trunk and diminished arm swing. Balance: Pruitt Balance Assessment improved from 35 to 44, a fall risk. Nubia is now steady with static stand eyes open, increased postural sway with eyes closed. Hip, ankle, stepping balance strategies are absent. O2: Seated conditioning at 3 l/min. keeps O2 sats 92-93%. Nubia tolerates 1-3 minutes of ambulation before dizziness, O2 remains 92%. A/P: Nubia Loya has reabsorbed her otoliths (BPPV) and is left with subsequent vestibular hypofunction affecting vestibular ocular reflex, eye tracking, balance. She may have cervical region circulatory problems affecting dizziness, balance. She is ready to work more post-concussion PT, continue cervical ROM and manual therapy for cervical afferent proprioception. Due to her altered balance reactions and gait, I feel she isn't ready to RTW safely. If you agree, we'll continue PT at 2x/week to goals set. Thank you. CORIE
--- NOTE | 2018-11-20 11:58 | PT PLAN OF CARE ---
Physician: Dr. 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 Two months: Nubia turns (met), lifts items from the floor without dizziness (partially met), RTW regular duties (not met). Three months: Nubia demonstrates corrective balance reactions (progressing), community ambulator over uneven ground (not met - ice and snow), normal fall risk ([place]) (met). PATIENT'S GOAL: Return to work regular duties with normal balance reactions and independent gait (not met). Patient Compliance: Excellent Prognosis: Excellent Reasons for continuing therapy: S: Nubia returns to PT after the holidays. She relates she can cook pickled meat items from the floor without dizziness if she returns to standing slowly, has infrequent out-of-sync feeling with looking up and to the right. Posture: Heels 4" apart, steady. ROM: AROM cervical spine 75% rotation B, extension 75% without dizziness. Strength: Hip abductors 3+/5. Palpation: Tight still in the cervical and upper thoracic regions. Special Tests: Negative VOR x1, no nystagmus. Gait/Balance: Independent gait with B ipsilateral trunk lean due to weak hip abductors, turns <3 seconds with control, able to clear a 4" curb. LOB with tandem stand or tandem gait. Nubia's now able to ambulate 10 feet with eyes shut with smooth, slightly slower cadance, weaves L 10", can ambulate backward, eyes open with control, shorter step length. Single leg stand 5 seconds each. Functional Gait Assessment (FGA) is a 24% impairment. [place] Balance Assessment 51/56, a normal fall risk and a 9% impairment. Mobility: Sit<>stand without UE use in 1 attempt, steady with immediate standing balance. A/P: Nubia Loya is reducing causes of dizziness (standing up too fast, question of vertebral artery stenosis), still has mild vestibular hypofunction affecting gait (24% impairment as compared to 9% [place], which doesn't incorporate gait wtih vestibular stimulation), LE weakness affecting gait (hip abductors). If you agree, we'll continue PT 2x/week 6 weeks to address these needs to improve gait, continue up-training her vestibular system. Thank you. CORIE
[2018-12-05] MEDS ORDERED: OMEG1CAP99 PO (08:04)
[2018-12-05] MEDS ORDERED: CHOL10005 PO (08:04)
[2018-12-05] MEDS ORDERED: TURM500C4 PO (08:04)
[2018-12-05] MEDS ORDERED: MULT-1335 PO (08:04)
== END 2018-12-04 ==
LOC: PT 09:00
PROVIDERS: ATTEND Internal Medicine
DX: H81.11 Benign paroxysmal vertigo, right ear (principal); F07.81 Postconcussional syndrome
CPT/HCPCS: 97162

== ENCOUNTER 2018-12-11 00:56 | Day surgery (SDC) | payer OTHER ==
[2015-02-05 13:09] VITALS: Ht 157.5 cm; Wt 88.0 kg
[~2018-12-11] VITALS: Ht 157.5 cm; Wt 88.0 kg
[~2018-12-11 00:56] MED LIST changes: +CHOL10005 PO; +MULT-1335 PO; +OMEG1CAP99 PO; +TURM500C4 PO
[2018-12-11] MEDS ORDERED: MIDAZOLAM 2 MG/2 ML VIAL IVP PRN (10:00)
[2018-12-11] MEDS ORDERED: LIDOCAINE/SOD BICARB 8.4% SYR ID ONE (10:00)
[2018-12-11] MEDS ORDERED: NORMOSOL R SOLN(*) 1000 ML BAG 1,000 ML IV PRN (10:00)
[2018-12-11] MEDS ORDERED: FAMOTIDINE 20 MG TAB PO ONE (10:00)
[2018-12-11] MEDS ORDERED: BUPIVACAINE/EPI 0.5% 50ML VIAL INFIL ONE ×2 (10:33→13:28)
[2018-12-11] MEDS ORDERED: LIDOCAINE 2% 200MG/10ML UROJET ONE ×2 (10:34→13:28)
[2018-12-11 10:53] VITALS: BP 127/74
[2018-12-11] MEDS ORDERED: cefTRIAXone(*) 1 GM VIAL 1 GM in NS(*) 0.9% 100 ML ADDVANT BAG 100 ML IVPB ONE (12:20)
[2018-12-11] MEDS ORDERED: metroNIDAZOLE* 500MG/100ML BAG 100 ML IVPB ONE (12:20)
[2018-12-11] MEDS ORDERED: PROPOFOL EMUL(*) 10MG/ML 20 ML 20 ML ONE ×2 (12:21→13:14)
[2018-12-11] MEDS ORDERED: ONDANSETRON 4 MG/2 ML VIAL ONE (13:14)
[2018-12-11] MEDS ORDERED: fentaNYL CITR 100 MCG/2 ML AMP ONE (13:34)
[2018-12-11] MEDS ORDERED: HYDR-653 PO (14:22)
[2018-12-11] MEDS ORDERED: LIDO15SO2 TOP (14:24)
--- NOTE | 2018-12-11 14:26 | Short(Outpt) Discharge Summary ---
Discharge Summary Reason for Hosp/Final Diag: (1) Hemorrhoid prolapse Hospital Course & Plan: 68 yo f presented for colonoscopy and hemorrhoidectomy. she tolerated the procedures well and there were no complications. she will be discharged home when criteria met. Discharge Instructions Home Meds Active Scripts Lidocaine HCl VISCOUS 2% (Lidocaine Viscous) 2 % Solution, 1 RENY TOP Q4H PRN for PAIN, #1 TUBE 1 Refill Prov:HERMES PEREZ 12/11/18 Hydrocodone Bit/Acetaminophen (NORCO 5-325 TABLET) 1 Each Tablet, 1 EACH PO Q4H for PAIN, #30 TAB Prov:HERMES PEREZ 12/11/18 Levothyroxine Sodium (LEVOTHYROXINE SODIUM) 50 Mcg Tablet, 50 MCG PO QDAY, #30 TAB 3 Refills Prov:ART CASTILLO MD 08/23/18 Meclizine Hcl (MECLIZINE HCL) 25 Mg Tab.chew, 25 MG PO TID PRN for dizziness, #30 TAB.CHEW Prov:ART CASTILLO MD 08/20/18 Reported Medications Assumption-3/Dha/Epa/Fish Oil (Assumption 3 500 Softgel) 500 Mg (200 Mg-300 Mg)-1,000 Mg Capsule, 500 MG PO DAILY 12/05/18 Turmeric/Turmeric Root Extract (Turmeric 500 mg Capsule) 450 Mg-50 Mg Capsule, 500 MG PO DAILY 12/05/18 Cholecalciferol (Vitamin D3) (VITAMIN D3) 1,000 Unit Tablet, 1000 UNIT PO DAILY, TAB 12/05/18 Multivitamin With Minerals (MULTIPLE VITAMIN) 1 Each Tablet, 1 EACH PO DAILY, TAB 12/05/18 Oxygen (Oxygen) 2 L Inha, 2 L INH DAILY, 0 Refills CONTINUOUS 10/18/11 Discontinued Scripts Hydrocortisone/Pramoxine (PROCTOFOAM-HC 1%-1% FOAM) 10 Gm Foam, 10 GM RC BID, #20 GM Prov:ART CASTILLO MD 11/19/18 Diet: Regular Activity: As Tolerated Special Instructions: sitz baths 15 min 3x/day keep stool soft with fiber supplement, stool softener, and prn laxative follow [facility] 2 wk ([phone]) HERMES PEREZ Dec 11, 2018 14:26
--- NOTE | 2018-12-11 14:28 | Post Operative Progress Note ---
Post Operative Progress Note Date: Dec 11, 2018 Time: 14:27 Surgeon: juan f perez md Principal Technologist: none Anesthesia: gen, local dr. bermeo Pre-Op Diagnosis: gi bleed, hemorrhoids, prolapse Post-Op Diagnosis: same Findings: polyp hemorrhoids rectal prolapse Procedure(s): colonoscopy, snare hemorrhoidectomy Specimen Removed:(May be N/A): polyp hemorrhoids Complications: none Fluids: iv crystalloid Estimated Blood Loss: minimal HERMES PEREZ Dec 11, 2018 14:28
[2018-12-11 15:20] VITALS: BP 136/72
[2018-12-11 15:44] VITALS: BP 144/79
--- NOTE | 2018-12-11 15:49 | NUR ---
1520: PT MOVED TO PHASE 2 BUT REMAINING IN MY CARE DUE TO STAFFING. 1540: PT REQUESTS JELLO, TOLERATED WELL.
[2018-12-11 15:57] VITALS: BP 162/81
[2018-12-11 15:58] VITALS: BP 157/111
--- NOTE | 2018-12-11 15:58 | NUR ---
1558: ORTHOSTATIC BP'S STARTED 1600: NO SIGNIFICANT CHANGE PT STATES SHE NEEDS TO GO TO THE BATHROOM 1615: PT HELP TO RESTROOM, IS INCONTINENT ON THE WAY TO THE REST ROOM. 1630: PT IS HELPED, HAS BEEN CLEANED AND DRESSED. 1632: SON AND GRANDSON PRESENT FOR DISCHARGE INSTRUCTIONS, STATE UNDERSTANDING 1640: PT IS HELPED TO CAR BY S RAYMOND, SON, AND GRANDSON
--- NOTE | 2018-12-12 09:01 | OPERATIVE REPORT 1 ---
EVENT DATE: December 11, 2018 SURGEON: Jose M Vazquez MD ANESTHESIOLOGIST: Vinh Leyva MD ANESTHESIA: General and local. [employer]: None. PREOPERATIVE DIAGNOSIS Blood per rectum, hemorrhoids and rectal prolapse. POSTOPERATIVE DIAGNOSES 1. Blood per rectum, hemorrhoids and rectal prolapse. 2. Diverticulosis. 3. Colon polyp. PROCEDURES PERFORMED 1. Colonoscopy with snare polypectomy. 2. Hemorrhoidectomy. FLUIDS IV crystalloids. ESTIMATED BLOOD LOSS Minimal. SPECIMENS 1. Colon polyp. 2. Hemorrhoids. COMPLICATIONS None. INDICATIONS This is a 68-year old female who has never had a colonoscopy. She complained of tissue protruding through her rectum as well as rectal bleeding. The risks and benefits of the procedure were explained and consent was signed. DESCRIPTION OF PROCEDURE The patient was taken to the operating room and placed in the supine position. General anesthesia was administered per the anesthesia team. The patient was then placed in the left lateral position. Perianal exam and digital rectal exam revealed internal and external hemorrhoids as well as mild rectal prolapse on one side of the rectum. The colonoscope was passed through the anus and into the sigmoid colon. Here, a pedunculated 15 mm polyp was identified and it was removed with hot snare. The colonoscope was then advanced to the cecum, identified by the ileocecal valve and the appendiceal orifice. The colonoscope was slowly withdrawn. There was still some stool in the colon. I estimate I saw approximately 90% of the colon well enough to identify polyps greater than 6 mm. The patient did have significant diverticulosis. These were small and moderate in size and were most numerous in the sigmoid colon. The colonoscope was withdrawn after the carbon dioxide was suctioned from the rectum. The patient was then placed in stirrups and prepped and draped in sterile fashion. Exam under anesthesia was performed, which revealed internal and external hemorrhoids as well as mild prolapsing rectum on one side of the canal. Hemorrhoidal tissue was removed from three locations, one on the left side, another posterior and another right posterior. It was done in similar fashion in each location with a small incision being made in the anoderm. Hemostat was used to dissect the hemorrhoidal tissue free of the internal sphincter muscle and LigaSure exact was used to remove the hemorrhoidal tissue. This was done in all three locations, leaving a tissue bridge in between. These wounds were then closed with running locking 2-0 Chromic stitches. Much of the prolapsing tissue was removed in this way. There was still a small amount of rectal prolapse that was not effectively treated in this way. Local analgesia was injected at the wound sites and in the form of a block. I was still able to easily pass a finger through the anus. Lidocaine surgical foam was placed in the anus. Appropriate dressings were applied. Patient tolerated the procedure well. There were no complications. CORIE
[2018-12-17] MEDS ORDERED: LEVO50TA86 PO (08:20)
== END 2018-12-11 15:20 | disposition home or self-care (01) ==
LOC: OR 00:56
PROVIDERS: ATTEND Surgery
DX: K64.4 Residual hemorrhoidal skin tags (principal); K62.3 Rectal prolapse; D12.5 Benign neoplasm of sigmoid colon
CPT/HCPCS: 00811; 45385; 46230; 88304; 88305; 94667; J2405; J2704; J3010; J3490